=== PATIENT | male | born 1970 | race Two or more races ===

== ENCOUNTER 2022-04-23 12:15 | Emergency (ER) | payer BC ==
[~2022-04-23] VITALS: Ht 170.2 cm; Wt 104.5 kg
[2022-04-23] MEDS ORDERED: cloNIDine HCL 0.1 MG TABLET PO ONE ×2 (12:30→14:30)
[2022-04-23 12:42] LABS: BASO # 0.1 x10^3/uL (0.0-0.2); BASO % 1 % (0-3); EOS % 0 % (0-3); HEMATOCRIT 45.8 % (39.0-53.0); HEMOGLOBIN 15.6 g/dL (13.0-17.5); LYMPH # 1.4 x10^3/uL (1.0-4.8); LYMPH % 19 % (24-48); MEAN CORPUSCULAR HEMOGLOBIN 32 pg (25-35); MEAN CORPUSCULAR HGB CONC 34 g/dL (31-37); MEAN CORPUSCULAR VOLUME 95 fL (79-100); MONO # 0.5 x10^3/uL (0.0-1.1); MONO % 7 % (0-9); NEUT # 5.3 x10^3/uL (1.8-7.7); NEUT % 73 % (31-73); PLATELET COUNT 209 x10^3/uL (140-400); RED BLOOD COUNT 4.83 x10^6/uL (4.30-5.70); RED CELL DISTRIBUTION WIDTH 14.3 % (11.5-14.5); WHITE BLOOD COUNT 7.4 x10^3/uL (4.0-11.0)
[2022-04-23 12:54] LABS: CALCIUM 9.4 mg/dL (8.5-10.1); CREATININE 0.7 mg/dL (0.7-1.3); GFR 118.9; POTASSIUM 4.1 mmol/L (3.5-5.1)
--- NOTE | 2022-04-23 13:03 | EKG ---
[facility] [address] [place] [address] Test Date: 2022-04-23 Test Time: 12:22:42 Pat Name: RAZA ELIAS Department: Room: Gender: M Pharmaceutical Assistant: : 1970 Requested By: DRISS FALCON Order Number: [id number] Reading MD: Measurements Intervals [place] Rate: 102 P: 38 [place]: 158 QRS: 12 QRSD: 104 T: 50 QT: 322 QTc: 424 Interpretive Statements SINUS TACHYCARDIA LEFT ATRIAL ABNORMALITY S1,S2,S3 PATTERN INCOMPLETE RIGHT BUNDLE BRANCH BLOCK CONSIDER RIGHT VENTRICULAR HYPERTROPHY ABNORMAL ECG RI6.02 No previous ECG available for comparison
--- NOTE | 2022-04-23 13:05 | RAD ---
XR CHEST 1V History: Chest pain Comparison: None. Technique: AP radiograph of the chest. Findings: The lungs are adequately and symmetrically inflated. No airspace consolidation, pleural effusion or p neumothorax. The cardiomediastinal silhouette and pulmonary vasculature are within normal limits. No acute osseous abnormality. Soft tissues are unremarkable. Impression: 1. No acute cardiopulmonary process. Electronically signed by: Stewart Amaral MD (04/23/2022 1:03 PM) [id number]
--- NOTE | 2022-04-23 13:20 | EKG ---
[facility] [address] [place] [address] Test Date: 2022-04-23 Test Time: 13:08:32 Pat Name: RAZA ELIAS Department: Room: Gender: M Campus Rep: : 1970 Requested By: DRISS FALCON Order Number: [id number] Reading MD: Measurements Intervals [place] Rate: 80 P: 48 [place]: 160 QRS: 0 QRSD: 104 T: 33 QT: 354 QTc: 412 Interpretive Statements SINUS RHYTHM LEFTWARD AXIS INCOMPLETE RIGHT BUNDLE BRANCH BLOCK QRS(T) CONTOUR ABNORMALITY CONSIDER ANTEROSEPTAL MYOCARDIAL DAMAGE POSSIBLY ABNORMAL ECG RI6.01 No previous ECG available for comparison
--- NOTE | 2022-04-23 13:28 | RAD ---
CT head without contrast: Reason for examination: Headache. Helical images were obtained through the brain with no contrast administered. Reconstruction was perf ormed in sagittal and coronal planes. Exposure: One or more of the following individualized dose reduction techniques were utilized for thi s examination: 1. Automated exposure control 2. Adjustment of the mA and/or kV according to patient size 3. Use of iterative reconstruction technique. Ventricular systems are symmetric and not dilated. No midline shift is seen. There is no evidence of intracranial hemorrhage, infarct, mass or edema. There are faint basal ganglia calcifications bilater ally. No abnormalities are seen at the orbits. The paranasal sinuses and mastoid air cells are clear. No acute skull abnormality is are seen. IMPRESSION: No acute intracranial abnormalities evident. Electronically signed by: Minda De La Garza MD (04/23/2022 1:25 PM) [email or web address]
[2022-04-23] MEDS ORDERED: LABETALOL 20 MG/4 ML DISP.SYRIN. IVP ONE (16:15)
--- NOTE | 2022-04-23 16:24 | PHYS DOC ---
Past Medical History Past Medical History: Diabetes-Type II, Hypertension Past Surgical History: No Surgical History Smoking Status: Current Every Day Smoker Alcohol Use: Occasionally General Adult EDM: Chief Complaint: HYPERTENSION HPI: HPI: Patient is a 51 year old m who presents with hypertensive emergency, was seen at a clinic today and noted to have blood pressure higher than 230 systolic and was promptly sent to the emergency department. Patient has past medical history of [id number] diabetes on metformin as well as hypertension on lisinopril 20 mg daily. Patient admits that he took a drug holiday and did not take any of his medications for the past 3 days while he was celebrate . Patient estimates he drank at least a dozen beers over the weekend and was feeling very weak, slightly dizzy, with mildly blurred vision for the past 2 days. Patient says he took his 20 mg lisinopril this morning but continues to feel ill all day today. Denies any chest pain or difficulty breathing. Patient denies recent illness, fevers, chills, nausea vomiting or diarrhea. Patient does have a hoarse voice which he says is atypical for him but denies any throat pain. Review of Systems: Review of Systems: Constitutional: Denies fever or chills. [] Eyes: Mild blurring of vision and pressure behind his eyes. [] HENT: Denies nasal congestion or sore throat. [] Respiratory: Denies cough or shortness of breath. [] Cardiovascular: Denies chest pain or edema. [] GI: Denies abdominal pain, nausea, vomiting, bloody stools or diarrhea. [] : Denies dysuria. [] Musculoskeletal: Denies back pain or joint pain. [] Integument: Denies rash. [] Neurologic: headache, no focal weakness or sensory changes. [] Endocrine: Denies polyuria or polydipsia. [] Lymphatic: Denies swollen glands. [] Psychiatric: Denies depression or anxiety. [] Heart Score: C/O Chest Pain: No Risk Factors: Risk Factors: DM, Current or recent (<one month) smoker, HTN, HLP, family history of CAD, obesity. Risk Scores: Score 0 - 3: 2.5% MACE over next 6 weeks - Discharge Home Score 4 - 6: 20.3% MACE over next 6 weeks - Admit for Clinical Observation Score 7 - 10: 72.7% MACE over next 6 weeks - Early Invasive Strategies Current Medications: Current Medications Medications (Trade) Dose Ordered Sig/Curtis Start Time Stop Time Status Last Admin Dose Admin Amlodipine Besylate (Norvasc) 5 mg 1X ONCE 04/23/22 14:45 04/23/22 14:46 DC 04/23/22 15:06 5 MG Clonidine HCl (Catapres) 0.1 mg 1X ONCE 04/23/22 14:30 04/23/22 14:36 DC 04/23/22 15:07 0.1 MG Labetalol HCl (Normodyne Iv Push) 10 mg 1X ONCE 04/23/22 16:15 04/23/22 16:16 DC 04/23/22 16:11 10 MG Allergies: Allergies: Allergies Coded Allergies Type Severity Reaction Last Updated Verified No Known Drug Allergies 04/23/22 No Physical Exam: PE: Constitutional: Well developed, well nourished, no acute distress, non-toxic appearance. [] HENT: Normocephalic, atraumatic, bilateral external ears normal, oropharynx moist, no oral exudates, nose normal. [] Eyes: PERRLA, EOMI, conjunctiva normal, no discharge. [] Neck: Normal range of motion, no tenderness, supple, no stridor. [] Cardiovascular:Heart rate regular rhythm, no murmur [] Lungs & Thorax: Bilateral breath sounds clear to auscultation [] Abdomen: Bowel sounds normal, soft, no tenderness, no masses, no pulsatile masses. [] Skin: Warm, dry, no erythema, no rash. [] Back: No tenderness, no CVA tenderness. [] Extremities: No tenderness, no cyanosis, no clubbing, ROM intact, no edema. [] Neurologic: Alert and oriented X 3, normal motor function, normal sensory function, no focal deficits noted. [] Psychologic: Affect normal, judgement normal, mood normal. [] Current Patient Data: Labs: Laboratory Tests Test 04/23/22 12:30 White Blood Count 7.4 x10^3/uL (4.0-11.0) Red Blood Count 4.83 x10^6/uL (4.30-5.70) Hemoglobin 15.6 g/dL (13.0-17.5) Hematocrit 45.8 % (39.0-53.0) Mean Corpuscular Volume 95 fL (79-100) Mean Corpuscular Hemoglobin 32 pg (25-35) Mean Corpuscular Hemoglobin Concent 34 g/dL (31-37) Red Cell Distribution Width 14.3 % (11.5-14.5) Platelet Count 209 x10^3/uL (140-400) Neutrophils (%) (Auto) 73 % (31-73) Lymphocytes (%) (Auto) 19 % (24-48) L Monocytes (%) (Auto) 7 % (0-9) Eosinophils (%) (Auto) 0 % (0-3) Basophils (%) (Auto) 1 % (0-3) Neutrophils # (Auto) 5.3 x10^3/uL (1.8-7.7) Lymphocytes # (Auto) 1.4 x10^3/uL (1.0-4.8) Monocytes # (Auto) 0.5 x10^3/uL (0.0-1.1) Eosinophils # (Auto) 0.0 x10^3/uL (0.0-0.7) Basophils # (Auto) 0.1 x10^3/uL (0.0-0.2) Sodium Level 147 mmol/L (136-145) H Potassium Level 4.1 mmol/L (3.5-5.1) Chloride Level 108 mmol/L (98-107) H Carbon Dioxide Level 28 mmol/L (21-32) Anion Gap 11 (6-14) Blood Urea Nitrogen 8 mg/dL (8-26) Creatinine 0.7 mg/dL (0.7-1.3) Estimated GFR (Cockcroft-Gault) 118.9 Glucose Level 109 mg/dL (70-99) H Calcium Level 9.4 mg/dL (8.5-10.1) Troponin I High Sensitivity 13 ng/L (4-75) Laboratory Tests 04/23/22 12:30 Laboratory Tests 04/23/22 12:30 Vital Signs: Vital Signs Date Time Temp Pulse Resp B/P (MAP) Pulse Ox O2 Delivery O2 Flow Rate FiO2 04/23/22 16:11 75 215/115 04/23/22 13:49 18 95 Room Air 04/23/22 12:18 98.4 98.4 EKG: EKG: EKG done at 11/26/2007, sinus rhythm with a rate of 80, leftward axis, incomplete right bundle branch block, normal intervals, nonspecific T wave changes, no ST elevations or depressions. Radiology/Procedures: Radiology/Procedures: CXR and head CT w/o contrast Impression: No acute findings on chest x-ray or head CT Course & Med Decision Making: Course & Med Decision Making Pertinent Labs and Imaging studies reviewed. (See chart for details) Patient with severely elevated blood pressure, possible endorgan damage given the severity, will head CT to rule out subarachnoid hemorrhage, chest x-ray to rule out pulmonary edema, troponin, creatinine to look for endorgan damage. Giving the patient p.o. clonidine with the intention of lowering his blood pressure modestly here in the emergency department. Patient's labs do not show any evidence of endorgan damage but patient's blood pressure remains elevated. Has had 0.2 and then 0.1 of clonidine and blood pressures as well as a dose of amlodipine for longer effect but pressures have remained essentially the same. We will not give IV labetalol and if patient's blood pressure continues to resist improvement will admit for hypertensive urgency not responsive to medication. May potentially need a labetalol drip. Patient's blood pressure improved prior to starting the labetalol drip, presently 160/90. Patient feeling well and prefers not to be admitted. Will prescribe amlodipine in addition to his lisinopril and encouraging the patient to follow-up as soon as possible with a primary doctor for blood pressure management. Sylvester Disclaimer: Sylvester Disclaimer: This electronic medical record was generated, in whole or in part, using a voice recognition dictation system. Departure Departure Impression: Primary Impression: Hypertensive urgency Ruled Out: Hypertensive emergency without congestive heart failure Disposition: HOME / SELF CARE / HOMELESS Condition: IMPROVED Referrals: NO PCP (PCP) Patient Instructions: Hypertension Scripts Amlodipine Besylate (AMLODIPINE BESYLATE) 5 Mg Tablet 5 MG PO DAILY for 30 Days, #30 TAB Prov: DRISS FALCON MD 04/23/22 Lisinopril (Lisinopril) 40 Mg Tablet 40 MG PO DAILY for 30 Days, #30 TAB Prov: DRISS FALCON MD 04/23/22 DRISS FALCON MD April 23, 2022 16:23
[2022-04-23] MEDS ORDERED: LABETALOL IV PRN (16:45)
[2022-04-23] MEDS ORDERED: ACETAMINOPHEN 325 MG TABLET. PO PRN (16:45)
[2022-04-23] MEDS ORDERED: NORMAL SALINE IV PRN (16:45)
[2022-04-23] MEDS ORDERED: ONDANSETRON PF 4 MG/2 ML VIAL. IVP PRN (16:45)
[2022-04-23] MEDS ORDERED: FUROSEMIDE 40 MG/4 ML VIAL. IVP ONE (17:15)
[2022-04-23 17:30] VITALS: BP 163/83
[2022-04-23] MEDS ORDERED: AMLO-186 PO (17:34)
[2022-04-23] MEDS ORDERED: LISI40TA6 PO (17:34)
== END 2022-04-23 17:44 | disposition home or self-care (01) ==
LOC: ER 12:15
DX: I16.1 Hypertensive emergency (principal); E11.9 Type 2 diabetes mellitus without complications; I10 Essential (primary) hypertension; R51.9 Headache, unspecified; F17.200 Nicotine dependence, unspecified, uncomplicated
CPT/HCPCS: 36415; 70450; 71045; 80048; 84484; 85025; 93005; 96374; 99285; J3490